=== PATIENT | female | born 1975 | race Caucasian/White ===

== ENCOUNTER 2019-05-10 15:45 | Day surgery (SDC) | payer OTHER, MEDICAID ==
[~2019-05-10 15:45] MED LIST: SEVOFLURANE 15 MIN
[2019-05-10] MEDS ORDERED: ROPIVACAINE 0.5 % 30 ML VIAL (17:27)
[2019-05-10] MEDS ORDERED: BUPIVACAINE 0.5% (SDV) 30 ML INJ (18:09)
[2019-05-10] MEDS ORDERED: MIDAZOLAM 1 MG/ML 2 ML INJ (18:10)
[2019-05-10] MEDS ORDERED: FENTAnyl 50 MCG/ML VIAL ×2 (18:11→19:34)
[2019-05-10] MEDS ORDERED: PROPOFOL 20 ML (18:42)
[2019-05-10] MEDS ORDERED: OXYCODONE/ACETAMINOPHEN (5/325) TAB PO ×3 (19:00→21:00)
[2019-05-10] MEDS ORDERED: GABAPENTIN 300 MG CAP PO (19:00)
[2019-05-10] MEDS ORDERED: morphine 2 MG INJ IV (19:00)
[2019-05-10] MEDS ORDERED: CEFAZOLIN 1 GM INJ (19:31)
[2019-05-10] MEDS ORDERED: LIDOCAINE 2% (SDV) 5 ML INJ (19:32)
[2019-05-10] MEDS: POLYMYXIN/BACITRACIN 1L IRRIG (19:32)
[2019-05-10] MEDS ORDERED: ROCURONIUM 50 MG INJ (19:32)
[2019-05-10] MEDS ORDERED: ONDANSETRON 4 MG INJ (19:32)
[2019-05-10] MEDS ORDERED: DEXAMETHASONE 4 MG/ML 5 ML INJ (19:32)
[2019-05-10] MEDS: THROMBIN 5000 UNIT VIAL (19:32)
[2019-05-10] MEDS: CA CHLORIDE 10% 10 ML SYRINGE (19:33)
[2019-05-10] MEDS ORDERED: THROMBIN 5000 UNIT VIAL (19:54)
[2019-05-10] MEDS: NEOMYC/POLYMYX/BACIT 30 GM OINT (20:20)
[2019-05-10] MEDS ORDERED: SUGAMMADEX SODIUM 200 MG/2 ML VIAL IV (20:22)
[2019-05-10] MEDS ORDERED: METOCLOPRAMIDE 10 MG INJ IV (21:00)
[2019-05-10] MEDS ORDERED: LABETALOL HCL 20MG INJ IV (21:00)
[2019-05-10] MEDS ORDERED: FENTAnyl 50 MCG/ML VIAL IV ×3 (21:00)
[2019-05-10] MEDS ORDERED: hydrALAzine 20 MG INJ IV (21:00)
[2019-05-10] MEDS ORDERED: ALBUTEROL 0.083% (NEB) 2.5 MG/3 ML AMP HHN (21:00)
[2019-05-10] MEDS ORDERED: KETOROLAC 30 MG INJ IV (21:00)
[2019-05-10] MEDS ORDERED: DIPHENHYDRAMINE 50 MG INJ IV (21:00)
[2019-05-10] MEDS ORDERED: MEPERIDINE 25 MG INJ IV (21:00)
[2019-05-10] MEDS ORDERED: HYDROmorphONE 1 MG/5 ML IV SYRINGE IV ×3 (21:00)
[2019-05-10] MEDS ORDERED: EPHEDrine 25 MG/5 ML SYG IV (21:00)
[2019-05-10] MEDS: ONDANSETRON 4 MG INJ IV (21:52)
== END 2019-05-10 22:44 | disposition home or self-care (01) ==
LOC: SDS 15:45
DX: S86.012A Strain of left Achilles tendon, initial encounter (principal); X58.XXXA Exposure to other specified factors, initial encounter
CPT/HCPCS: 27650; 82306; 84703